=== PATIENT | male | born 1945 ===

== ENCOUNTER 2025-01-01 15:16 | Emergency (ER) | payer MEDICARE ==
[2025-01-01] MEDS ORDERED: Sodium Chloride 0.9% 10 ML Syringe FLUSH PRN (15:49)
[2025-01-01] MEDS: Aspirin 81 MG Tab.Chew PO ONE (15:54)
[2025-01-01 15:58] LABS: BASOPHILS ABSOLUTE AUTO 0.03 K/uL (0.02-0.10); BASOPHILS PERCENT AUTO 0.4 % (0.0-0.5); EOSINOPHILS ABSOLUTE AUTO 0.25 K/uL (0.04-0.40); EOSINOPHILS PERCENT AUTO 3.6 % (1.0-5.0); HEMATOCRIT 46.8 % (40.0-54.0); HEMOGLOBIN 15.4 g/dL (13.0-18.0); LYMPHOCYTES ABSOLUTE AUTO 2.57 K/uL (1.50-4.00); LYMPHOCYTES PERCENT AUTO 36.8 % (20.0-40.0); MEAN CORPUSCULAR HGB CONC 32.9 g/dL (31.0-35.0); MEAN CORPUSCULAR VOLUME 91 fL (76-96); MEAN PLATELET VOLUME 9.3 fL (6.0-10.0); MONOCYTES ABSOLUTE AUTO 0.88 K/uL (0.20-0.80); MONOCYTES PERCENT AUTO 12.6 % (3.0-10.0); NEUTROPHILS ABSOLUTE AUTO 3.25 K/uL (2.00-7.50); NEUTROPHILS PERCENT AUTO 46.6 % (45.0-70.0); PLATELET COUNT,PLT 230 K/uL (150-400); RED BLOOD CELL COUNT 5.14 M/uL (4.50-6.50); RED CELL DISTRIBUTION WIDTH 13.7 % (11.0-16.0)
[2025-01-01] MEDS: Metoprolol Tartrate 25 MG Tab PO ONE (16:10)
[2025-01-01 16:19] LABS: BUN/CREATININE RATIO 19.2 (6-25); CALCIUM 8.6 mg/dL (8.5-10.1); CARBON DIOXIDE,CO2 28.2 mmol/L (21.0-32.0); CREATININE 1.3 mg/dL (0.70-1.30); EST CRCL DRUG DOSING (CG) 46.83 mL/min; MAGNESIUM 1.9 mg/dL (1.8-2.4); POTASSIUM,K 4.2 mmol/L (3.5-5.1); TROPONIN I HIGH SENSITIVITY 6.7 pg/ml (<=60.4)
[2025-01-01 16:24] LABS: PTT,PARTIAL THROMBOPLSTIN TIME 34.5 SECONDS (24.4-33.2)
[2025-01-01 16:25] LABS: PROTHROMBIN TIME 10.8 sec (9.0-11.5)
== END 2025-01-01 16:41 | disposition home or self-care (01) ==
LOC: LB.ED 15:16
DX: I48.91 Unspecified atrial fibrillation (principal); Z79.899 Other long term (current) drug therapy; Z88.6 Allergy status to analgesic agent
CPT/HCPCS: 36415; 80048; 83735; 83880; 84484; 85025; 85610; 85730; 99285; A9270; 93010; 99284